=== PATIENT | female | born 1975 | race Caucasian/White ===

== ENCOUNTER 2018-01-25 09:19 | Emergency (ER) | payer OTHER ==
[2018-01-25] MEDS ORDERED: ASPIRIN 81 MG CHEWABLE TAB PO ONE (09:54)
--- NOTE | 2018-01-25 10:16 | EDPHY ---
H & P Time Seen by Provider: 01/25/18 09:21 HPI/ROS: CHIEF COMPLAINT: Chest tightness HISTORY OF PRESENT ILLNESS: Patient states that yesterday around 10:30 a.m. While she was in a meeting at work she developed chest tightness that radiated to her throat and back. She said it was severe at onset, 9/10 pain, associated with some difficulty breathing. She denies diaphoresis. She denies nausea or vomiting. She states it lasted for about 15-20 minutes and went away on its own. She describes the pain as substernal with radiation wrapping around to the back bilaterally in the low chest upper abdominal region. She states she had similar symptoms a few years ago but it was only 1 time and she never sought care for it. Pain recurred around 615 last night it was not quite as intense, 7/10. Her states that she looked like she was going to pass out and seemed to be pale. But otherwise similar in that lasted 15-20 minutes, with substernal, was associated with some difficulty breathing. This morning around 8:00 a.m. She states she had similar symptoms although this time only 3/10, no shortness of breath but did notice that the pain radiated up to her left shoulder and jaw. She denies any recent dyspnea on exertion or exercise intolerance. She ran approximately 3 miles on Sunday, used weights on Sunday. She did have a bit of a stomach ache in the lower abdomen on Sunday which resolved without difficulty. She denies any fevers or chills. She has had no significant travel. Cholesterol was checked recently and is okay. REVIEW OF SYSTEMS: Constitutional: No fever, no chills. Eyes: No discharge. ENT: No sore throat. Cardiovascular: No chest pain, no palpitations. Respiratory: No cough, no shortness of breath. Gastrointestinal: No abdominal pain, no vomiting. Genitourinary: No dysuria. Musculoskeletal: No back pain. Skin: No rashes. Neurological: No headache. General Appearance: Alert, no distress. Eyes: Pupils equal and round no pallor or injection. ENT, Mouth: Mucous membranes moist. Respiratory: There are no retractions, lungs are clear to auscultation. Cardiovascular: Regular rate and rhythm. Gastrointestinal: Abdomen is soft and nontender, no masses, bowel sounds normal. Neurological: Cranial nerves normal, normal strength sensation throughout. Nonfocal Skin: Warm and dry, no rashes. Musculoskeletal: Neck is supple nontender. Extremities are symmetrical, full range of motion, no edema. Psychiatric: Patient is oriented X 3, there is no agitation. Medical/surgical history: History of exploratory abdominal surgery for endometriosis. D&C. Breast augmentation. Patient does have Mirena IUD in place. Social history: Nonsmoker. Denies drugs. Drinks 1 glass of wine at night. Smoking Status: Never smoked Constitutional: Initial Vital Signs Temperature (C) 37.2 C 01/25/18 09:26 Heart Rate 73 01/25/18 09:26 Respiratory Rate 18 01/25/18 09:26 Blood Pressure 159/82 H 01/25/18 09:26 O2 Sat (%) 99 01/25/18 09:26 O2 Delivery Mode Room Air Allergies/Adverse Reactions: erythromycin base Allergy (Verified 01/25/18 09:26) Home Medications: Medication Instructions Recorded NK [No Known Home Meds] 01/25/18 Medical Decision Making - Diagnostics EKG Interpretation: EKG performed for chest tightness. EKG shows normal sinus rhythm with a rate of 80. Normal intervals. Some left atrial enlargement noted. No acute ST T- wave changes to suggest ischemia or infarct. Impression nonspecific EKG. Repeat EKG performed as pain return. Described as 3/10. Repeat EKG shows normal sinus rhythm with a rate of 61. No significant changes with left atrial enlargement still present. This EKG suggestive of incomplete right bundle- branch block. No acute ST T-wave changes. Imaging Results: Imaging Impressions Chest X-Ray 01/25/18 09:55 Impression: 1. No active cardiopulmonary disease seen. 2. Mild anterior wedging superior endplate of T7. ED Course/Re-evaluation: Heart score calculated equals two, low risk. 10:35 a.m. Patient experiencing chest discomfort, 3/10. EKG repeated no changes. GI cocktail given. 10:50 a.m. pain resolved currently chest pain-free. 12:15 2nd troponin negative. Discussed heart score in detail with patient including risk stratification, her score, follow-up options. Patient, through shared decision making, is comfortable with follow-up as outpatient with Cardiology next week. Will place order for cardiology follow-up in [facility]. Reminded that if symptoms return or worsen she is encouraged to return to the emergency department for evaluation. Differential Diagnosis: Differential diagnosis includes but is not limited to acute coronary syndrome, pulmonary embolism, thoracic aortic dissection, pneumonia, bronchitis, musculoskeletal chest pain, gastroesophageal reflux disease. After evaluation unclear cause of patient's pain although low risk per heart score and unremarkable workup in the emergency department. Could represent gastroesophageal reflux disease but will refer to cardiology for completion of risk assessment. Pain-free on discharge, improved blood pressure, no hypoxia noted. Discussed return precautions in detail. Stable for discharge. - Data Points Laboratory Results: 01/25/18 01/25/18 01/25/18 11:48 10:02 09:49 POC Sodium 141 mEq/L mEq/L (135-145) POC Potassium 3.8 mEq/L mEq/L (3.3-5.0) POC Chloride 103.0 mEq/L mEq/L (97-110) POC Total CO2 27 mEq/L mEq/L (22-31) POC BUN 12 mg/dL mg/dL (7-23) POC Creatinine 0.8 mg/dL mg/dL (0.6-1.0) POC Glucose 87 mg/dL mg/dL (70-100) POC Calcium 9.7 mg/dL mg/dL (8.5-10.4) POC Total Bilirubin 1.4 mg/dL mg/dL (0.1-1.4) POC AST 27 IU/L IU/L (14-46) POC ALT 20 IU/L IU/L (9-52) POC Alk Phosphatase 61 IU/L IU/L (38-126) POC Troponin I 0.00 ng/mL ng/mL 0.00 ng/mL ng/mL (0.00-0.08) (0.00-0.08) POC Total Protein 7.1 g/dL g/dL (6.3-8.2) POC Albumin 4.0 g/dL g/dL (3.5-5.0) Medications Given: Discontinued Medications Al Hydroxide/Mg Hydroxide (Maalox Susp) 30 ml PO ONCE ONE Stop: 01/25/18 10:39 Last Admin: 01/25/18 10:47 Dose: 30 ml Aspirin (Aspirin) 324 mg PO EDNOW ONE Stop: 01/25/18 09:55 Last Admin: 01/25/18 09:57 Dose: 324 mg Hyoscyamine Sulfate (Levsin, Hyomax-Sl) 0.25 mg PO ONCE ONE Stop: 01/25/18 10:39 Last Admin: 01/25/18 10:47 Dose: 0.25 mg Lidocaine (Lidocaine 2% Viscous) 15 ml PO ONCE ONE Stop: 01/25/18 10:39 Last Admin: 01/25/18 10:47 Dose: 15 ml Point of Care Test Results: CBC CBC Collection Date 01/25/18 CBC Collection Time 09:35 WBC 5.1 RBC 4.53 HGB 15.1 HCT 44.6 PLT 198 Neut # 3.6 Neut 70.7 LYMPH # 1.2 LYMPH 24.1 Other WBC # 0.3 Other WBC 5.2 MCV 98.5 Chemistry 01/25/18 01/25/18 01/25/18 11:48 10:02 09:49 POC Sodium 141 mEq/L mEq/L (135-145) POC Potassium 3.8 mEq/L mEq/L (3.3-5.0) POC Chloride 103.0 mEq/L mEq/L (97-110) POC Total CO2 27 mEq/L mEq/L (22-31) POC BUN 12 mg/dL mg/dL (7-23) POC Creatinine 0.8 mg/dL mg/dL (0.6-1.0) POC Glucose 87 mg/dL mg/dL (70-100) POC Calcium 9.7 mg/dL mg/dL (8.5-10.4) POC Total Bilirubin 1.4 mg/dL mg/dL (0.1-1.4) POC AST 27 IU/L IU/L (14-46) POC ALT 20 IU/L IU/L (9-52) POC Alk Phosphatase 61 IU/L IU/L (38-126) POC Troponin I 0.00 ng/mL ng/mL 0.00 ng/mL ng/mL (0.00-0.08) (0.00-0.08) POC Total Protein 7.1 g/dL g/dL (6.3-8.2) POC Albumin 4.0 g/dL g/dL (3.5-5.0) D-Dimer D-Dimer Collection Date 01/25/18 D-Dimer Collection Time 09:35 D-Dimer (ng/ml) 100 Departure - Departure Clinical Impression: Chest pain Qualifiers: Chest pain type: unspecified Qualified Code(s): R07.9 - Chest pain, unspecified Condition: Good Instructions: Chest Pain (ED) Additional Instructions: Try heartburn relieving medication like Zantac as discussed. Contact Cardiology if you have not heard from them by Sunday at lunchtime. Please do not hesitate to return to the emergency department if you develops new or more concerning symptoms. Referrals: NONE *PRIMARY CARE P,. [Primary Care Provider] - As per Instructions Elbert Salinas MD [Medical Doctor] - As per Instructions
[2018-01-25] MEDS ORDERED: HYOSCYAMINE SULFATE 0.125 MG TAB PO ONE (10:38)
[2018-01-25] MEDS ORDERED: MAG HYDROX/AL HYDROX/SIMETH 30 ML UDCUP PO ONE (10:38)
[2018-01-25] MEDS ORDERED: LIDOCAINE 2% VISCOUS 15 ML UDCUP PO ONE (10:38)
[2018-01-25] MEDS ORDERED: NITROGLYCERIN 0.4 MG BTL SL ONE (11:02)
[2018-01-25] MEDS ORDERED: ASPIRIN 81 MG CHEWABLE TAB ONE (11:02)
[2018-01-25 12:37] VITALS: BP 136/88
== END 2018-01-25 12:45 | disposition home or self-care (01) ==
LOC: CED 09:19
DX: R07.89 Other chest pain (principal)
CPT/HCPCS: 71046-PO; 80053-PO; 84484-PO